=== PATIENT | male | born 1985 | race Caucasian/White ===

== ENCOUNTER 2018-02-06 20:09 | Emergency (ER) | payer OTHER ==
[~2018-02-06] VITALS: Ht 172.7 cm; Wt 67.9 kg
[2018-02-06 22:15] VITALS: BP 130/67
== END 2018-02-06 22:38 | disposition home or self-care (01) ==
LOC: EDBD 20:09 → EME 20:09
DX: R25.8 Other abnormal involuntary movements (principal); T40.7X5A Adverse effect of cannabis (derivatives), initial encounter; F17.200 Nicotine dependence, unspecified, uncomplicated
CPT/HCPCS: 99281; 99285